=== PATIENT | female | born 1980 | race Caucasian/White ===

== ENCOUNTER 2016-03-22 18:19 | Emergency (ER) | payer MEDICARE, MEDICAID ==
[2016-03-22 19:06] VITALS: TEMP 98.8; BMI 50.8
[2016-03-22 19:50] VITALS: BP 116/55; PULSE 75
[2016-03-22] MEDS ORDERED: CYCLOBENZAPRINE 10 MG TAB PO ONE (19:52)
[2016-03-22] MEDS ORDERED: IBUPROFEN 600 MG TAB PO ONE (19:52)
--- NOTE | 2016-03-22 19:58 | DIRPT ---
CLINICAL DATA: Fall on Sunday with lower back pain that has been getting worse. EXAM: LUMBAR SPINE - COMPLETE 4+ VIEW COMPARISON: Lumbar spine MR from 08/17/2011. Lumbar spine x-rays from 08/02/2011. FINDINGS: No fracture. No subluxation. Loss of disc height is seen at L5-S1. Facets are aligned bilaterally. SI joints are normal in appearance. IMPRESSION: No acute bony findings. Degenerative changes at L5-S1. Electronically Signed By: Shilo aHque M.D. On: 03/22/2016 19:56
--- NOTE | 2016-03-22 20:24 | EDPRACDOC ---
- General Information Chief Complaint: Back Injury Stated Complaint: SLIPPED & FELL MID TO LOWER BACK PAIN BILATERAL Time Seen by Provider: 03/22/16 19:46 Information Source: Patient Home Medications: Home Medications Cyclobenzaprine HCl [Flexeril] 10 mg PO TID #21 tab 03/22/16 Meloxicam [Mobic] 7.5 mg PO BID #20 tab 03/22/16 Allergies/Adverse Reactions: Allergies Allergy/AdvReac Type Severity Reaction Status Date / Time No Known Allergies Allergy Verified 03/22/16 19:04 - History of Present Illness Onset: 3 days HPI: PT PRESENTS TODAY WITH LOW BACK PAIN X 3 DAYS. PT STATES SHE WAS SHOPPING AT [employer] AND WHEN PUTTING THE CART BACK, SLIPPED AND FELL ONTO HER BACK. NO OTHER INJURY REPORTED. Pain Location: Reports: Lumbar Pain Radiates To: Reports: None Pain Caused By: Reports: Blunt Trauma Circumstances: Reports: Fall Relevant History: Reports: None Pain Severity: Reports: Moderate Pain Quality: Reports: Aching Worsened By: Reports: Movement, Walking Associated Signs and Symptoms: Reports: None ED Past Medical History - History Reviewed Yes Nurses notes reviewed and agree except as marked - Patient Medical History Musculoskeletal History: Reports: Arthritis (lower back) Systemic History: Denies: Cancer Surgical History: Reports: Cholecystectomy. Denies: Hysterectomy - Social Medical History Smoking Status: Heavy tobacco smoker (5 or more cigarettes/day or daily pipe/ cigar) EDM Review of Systems - Review of Systems ROS Negative Except as Marked: Yes All systems reviewed and were negative except as marked Constitutional: No Symptoms Reported Respiratory: No Symptoms Reported Cardiovascular: No Symptoms Reported Gastrointestinal: No Symptoms Reported Genitourinary: No Symptoms Reported Neurological: No Symptoms Reported Musculoskeletal: Back Integumentary: No Symptoms Reported - Physical Exam Constitutional: Alert (Awake), No apparent distress Oriented to: Time, Person, Place Last recorded Vital Signs: Last Vital Signs Temp 98.8 F 03/22/16 19:04 Pulse 75 03/22/16 19:49 Resp 20 03/22/16 19:49 BP 116/55 L 03/22/16 19:49 Pulse Ox 96 03/22/16 19:49 Oxygen Pulse Oxygen Saturation 96 O2 Device Room Air Oxygen Flow Rate Fraction of Inspired Oxygen ( FIO2) - HEENT Head: Normal Eye Exam: Normal Neck: Normal, Denies Pain, Midline - Respiratory/Cardiovascular Respiratory: Normal - CTA Cardiovascular: Normal - GI Palpation: Normal Tenderness: Non tender - Musculoskeletal Back: Lumbar TTP, Other (NOTED SMALL BRUISE AT RIGHT, LATERAL LUMBAR W/OUT APPARENT DEFORMITY) Extremities: Normal - Integumentary Skin: Normal Lymphatics: Normal - Neurologic Cerebellar: Normal Mood Description: Normal Thought: Coherent Perception: Normal ED Back Exam - Neurologic Motor Deficit: None - Musculoskeletal Cervical: Normal Thoracic: Normal Lumbar: Tender Midline: Tender Paraspinous: Tender Pelvis: Normal Decision Time to Discharge: 20:25 - Departure Disposition: Home Condition: Good Final Diagnosis: Back contusion Qualifiers: Encounter type: initial encounter Laterality: right Qualified Code(s): S20.221A - Contusion of right back wall of thorax, initial encounter Instructions: RICE: Routine Care for Injuries Education/Counseling Given To: Patient Education/Counseling Given Regarding: Diagnosis, Treatment, Follow Up Referrals: Leandro Newsome MD [Primary Care Provider] - One Week Prescriptions: Cyclobenzaprine HCl [Flexeril] 10 mg PO TID #21 tab Meloxicam [Mobic] 7.5 mg PO BID #20 tab Additional Instructions: HEATING PADS FOR ADDITIONAL RELIEF. IF SYMPTOMS PERSIST DESPITE TODAYS MEDICATIONS, FOLLOW UP WITH PCP FOR POSSIBLE NEED OF OUTPATIENT MRI.
== END 2016-03-22 20:32 | disposition home or self-care (01) ==
LOC: EDMC 18:19
DX: S30.0XXA Contusion of lower back and pelvis, initial encounter (principal); W01.0XXA Fall on same level from slipping, tripping and stumbling without subsequent striking against object, initial encounter; Y92.512 Supermarket, store or market as the place of occurrence of the external cause; F17.200 Nicotine dependence, unspecified, uncomplicated
CPT/HCPCS: 72110; 99283; A9270; J3490